=== PATIENT | male | born 1955 | race Caucasian/White ===

== ENCOUNTER 2023-01-27 10:58 | Observation (INO) | payer BC ==
[2023-01-27] MEDS ORDERED: morphine CARPU-JECT 4 MG/1 ML DISP.SYRIN IVPUSH ONE (11:47)
[2023-01-27] MEDS ORDERED: ONDANSETRON 4 MG/2 ML VIAL IVPUSH ONE (11:47)
[2023-01-27] MEDS ORDERED: morphine SULFATE 4 MG/ML VIAL ONE (11:51)
[2023-01-27] MEDS ORDERED: ONDANSETRON 4 MG/2 ML VIAL ONE (11:52)
[2023-01-27 12:36] LABS: BASO % 0.1 % (0-2.0); HEMATOCRIT 44.4 % (35.4-49); HEMOGLOBIN 15.1 GM/dL (11.7-16.9); LYMPH % 11.4 % (8-40); MCH 28.4 pg (25.7-33.7); MEAN CELL VOLUME 83.6 fl (80-96); MEAN PLT VOLUME 8.6 fl (7.5-11.1); MONO % 7.3 % (3.8-10.2); NEUT % 81.2 % (42.8-82.8); PLATELET COUNT 219 10^3/uL (134-434); RBC 5.32 M/mm3 (4.00-5.60); RDW 13.7 % (11.9-15.9); WHITE BLOOD COUNT 13.4 K/mm3 (4.0-10.0)
[2023-01-27 12:49] LABS: POTASSIUM 4.3 mmol/L (3.5-5.1)
[2023-01-27 12:52] LABS: CALCIUM 8.6 mg/dL (8.5-10.1)
[2023-01-27 12:53] LABS: ALBUMIN 4.2 g/dl (3.4-5.0); BLOOD UREA NITROGEN 21.8 mg/dL (7-18)
[2023-01-27 12:56] LABS: CREATININE 1.4 mg/dL (0.55-1.3)
[2023-01-27 13:00] LABS: BILIRUBIN,TOTAL 1.3 mg/dL (0.2-1)
[2023-01-27] MEDS ORDERED: SODIUM CHLORIDE 0.9% 500 ML INFUS.BAG IV ONE (13:05)
[2023-01-27 13:50] LABS: EPI CELLS 1 /uL (0-25.1); HYALINE CASTS 0 /uL (0-3.1); PH,URINE 6.5 (5.0-8.0); URINE APPEARANCE CLEAR; URINE BACTERIA 4 /uL (0-1359); URINE BILIRUBIN NEGATIVE (NEGATIVE); URINE COLOR YELLOW; URINE GLUCOSE (UA) NEGATIVE (NEGATIVE); URINE KETONE NEGATIVE (NEGATIVE); URINE LEUK ESTERASE NEGATIVE (NEGATIVE); URINE NITRITE NEGATIVE (NEGATIVE); URINE PROTEIN NEGATIVE (NEGATIVE); URINE RBC 4 /uL (0-23.9); URINE UROBILINOGEN 0.2 mg/dL (0.2-1.0); URINE WBC 1 /uL (0-25.8)
[2023-01-27] MEDS ORDERED: TAMSULOSIN HCL 0.4 MG CAP PO ONE (14:12)
[2023-01-27] MEDS ORDERED: TAMSULOSIN HCL 0.4 MG CAP ONE (14:25)
[2023-01-27] MEDS ORDERED: ONDANSETRON 4 MG/2 ML VIAL IVPUSH PRN (15:17)
[2023-01-27] MEDS ORDERED: LACTATED RINGERS SOLUTION 1,000 ML/1,000 ML INFUS.BAG IV SCH (15:30)
[2023-01-28] MEDS ORDERED: ACETAMINOPHEN 1000 MG/100 ML BAG IVPB ONE (01:57)
[2023-01-28 02:05] VITALS: BMI 36.7
[2023-01-28] MEDS: LOSARTAN POTASSIUM 50 MG TABLET PO SCH ×2 (02:08→10:37)
[2023-01-28] MEDS ORDERED: SODIUM CHLORIDE 1,000 ML IV SCH (07:45)
[2023-01-28] MEDS ORDERED: TAMSULOSIN HCL 0.4 MG CAP PO SCH (08:30)
[2023-01-28 09:49] VITALS: BP 142/100; PULSE 67; RESP 22; TEMP 98
[2023-01-28] MEDS ORDERED: CEFTRIAXONE 1 GM in DEXTROSE 5%-WATER - 50 ML IVPB SCH (10:00)
[2023-01-28 11:04] LABS: BASO % 0.4 % (0-2.0); HEMATOCRIT 43.9 % (35.4-49); HEMOGLOBIN 14.9 GM/dL (11.7-16.9); MCH 28.8 pg (25.7-33.7); MEAN CELL VOLUME 84.9 fl (80-96); MEAN PLT VOLUME 8.4 fl (7.5-11.1); MONO % 13.6 % (3.8-10.2); PLATELET COUNT 219 10^3/uL (134-434); RBC 5.17 M/mm3 (4.00-5.60); RDW 13.8 % (11.9-15.9)
[2023-01-28 11:33] LABS: POTASSIUM 4.6 mmol/L (3.5-5.1)
[2023-01-28 11:37] LABS: CALCIUM 8.8 mg/dL (8.5-10.1)
[2023-01-28 11:38] LABS: BLOOD UREA NITROGEN 10.9 mg/dL (7-18)
[2023-01-28 11:41] LABS: CREATININE 1.1 mg/dL (0.55-1.3)
== END 2023-01-28 13:49 | disposition home or self-care (01) ==
LOC: JER 10:58 → JERBED 14:10 → J6S 01-28 00:03
PROVIDERS: ADMIT Internal Medicine; ATTEND Internal Medicine
PROC: 3E03329 Introduction of Other Anti-infective into Peripheral Vein, Percutaneous Approach (ICD-10-PCS; principal; 2023-01-27)
PROC: 3E033NZ Introduction of Analgesics, Hypnotics, Sedatives into Peripheral Vein, Percutaneous Approach (ICD-10-PCS; 2023-01-27)
PROC: 3E0337Z Introduction of Electrolytic and Water Balance Substance into Peripheral Vein, Percutaneous Approach (ICD-10-PCS; 2023-01-27)
PROC: 3E033NZ Introduction of Analgesics, Hypnotics, Sedatives into Peripheral Vein, Percutaneous Approach (ICD-10-PCS; 2023-01-27)
DX: N13.2 Hydronephrosis with renal and ureteral calculous obstruction (principal); N17.9 Acute kidney failure, unspecified; R79.89 Other specified abnormal findings of blood chemistry; I10 Essential (primary) hypertension; Z87.891 Personal history of nicotine dependence; Z87.442 Personal history of urinary calculi
CPT/HCPCS: 36415; 74176-TC; 76775-TC; 80048; 80053; 81003; 85025; 87086; 99285-25; G0378